=== PATIENT | female | born 1950 | race Caucasian/White ===

== ENCOUNTER → 2017-05-19 | Outpatient (CLI) | payer MEDICARE, BC ==
[~2017-05-19] MED LIST: ACYC800T99 PO; ASP325 PO; ASPIRIN; AUG875 PO; BUP100 PO; BUPR-474 PO; CEPH-13 PO; CITRICAL; EFFEXOR; ESCI20TA38 PO; FISH OIL; FOLIC ACID; GABA-549 PO; HYOS0.1225 PO; KET10 PO; LEVO75TA68 PO; LEVO75TA73 PO; MULTIPLE VITAMIN; ONDA4TAB PO; OXYGEN; PER PO; QUET200T29 PO; ROBC PO; ROS10 PO; SERAQUIL; THYROID; TRAM-420 PO; VERTIGO MED; [UNRECOGNIZED DRUG - CODE] PO; crestor; sinus med
== END ==
LOC: LAB 15:39
PROVIDERS: ATTEND Nurse Practitioner Primary Care
DX: M79.89 Other specified soft tissue disorders (principal)
CPT/HCPCS: 36415; 85379

== ENCOUNTER → 2017-05-19 | Outpatient (CLI) | payer MEDICARE, BC ==
--- NOTE | 2017-05-19 17:35 | RADIOLOGY IMAGING REPORT ---
[place] [facility] [place] NAME: Laura Sharpe : 1950 MR: [id number] V: [id number] EXAM DATE: ORDERING PHYSICIAN: NILDA BOSWELL TECHNOLOGIST: Location: [facility] - [place] Patient: Laura Sharpe : 1950 Visit/Account:[id number] Date of Sevice: 05/19/2017 Exam type: VENOUS DOPP UPPER RIGHT EXTREM History: Right arm pain into shoulder and neck x1 day, swollen hand Comparison: None. Findings: The right upper extremity veins were imaged including the right internal jugular vein the right subcl bess vein and right axillary vein, the right basilic vein, the right brachial vein, the right ulnar vein and right radial vein. The veins were compressible and demonstrated phasic flow. The right cep halic vein was not identified IMPRESSION: 1. No sonographic evidence of DVT involving the right upper extremity veins. 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 Report Dictated By: Ivania Pope MD at 05/19/2017 5:29 PM Report E-Signed By: Ivania Pope MD at 05/19/2017 5:32 PM WSN:[email or web address]
== END ==
LOC: RAD 16:30
PROVIDERS: ATTEND Nurse Practitioner Primary Care
DX: M79.89 Other specified soft tissue disorders (principal)

== ENCOUNTER → 2017-05-20 | Outpatient (CLI) | payer MEDICARE, BC ==
--- NOTE | 2017-05-20 14:20 | RADIOLOGY IMAGING REPORT ---
FACILITY: [facility] - [place] PATIENT NAME: Laura Sharpe : 1950 MR: [id number] V: [id number] EXAM DATE: ORDERING PHYSICIAN: NILDA BOSWELL TECHNOLOGIST: Location: [facility] Patient: Laura Sharpe : 1950 Visit/Account:[id number] Date of Sevice: 05/20/2017 Exam type: SHOULDER MIN 2 VIEWS RIGHT History: Pain in right shoulder neck with no injury Comparison: None. Findings: Three views of the right shoulder reveal mild narrowing the right glenohumeral joint. There is no ev idence of acute fracture or dislocation seen. Mild degenerative changes of the right AC joint are al so incidentally noted. IMPRESSION: 1. Mild narrowing the right glenohumeral joint and mild degenerative changes of the right AC joint. If patient's symptoms persist MR may be helpful Report Dictated By: Ivania Pope MD at 05/20/2017 2:14 PM Report E-Signed By: Ivania Pope MD at 05/20/2017 2:15 PM WSN:[email or web address]
== END ==
LOC: RAD 11:31
PROVIDERS: ATTEND Nurse Practitioner Primary Care
DX: M19.011 Primary osteoarthritis, right shoulder (principal)

== ENCOUNTER → 2017-06-25 | Outpatient (CLI) | payer MEDICARE, BC ==
[~2017-06-25] MED LIST changes: +ROSU20TA13 PO
--- NOTE | 2017-06-25 14:11 | RADIOLOGY IMAGING REPORT ---
FACILITY: [facility] PATIENT NAME: Laura Sharpe : 1950 MR: [id number] V: [id number] EXAM DATE: ORDERING PHYSICIAN: HARESH URIAS TECHNOLOGIST: Location: [facility] Patient: Laura Sharpe : 1950 Visit/Account:[id number] Date of Sevice: 06/25/2017 Clinical history: Screening, postmenopausal. Comparison: None. LUMBAR SPINE: The bone mineral density (BMD) measured from L1-L4 correlates with a Z-score of -1.1 and a T-score of -2.7 which is osteoporosis as defined by the World Health Organization. The corresponding risk of f racture in the lumbar spine is increased 6-8 times compared with a young adult reference population. HIP: Bone mineral density (BMD) measured in the left total hip region correlates with a Z-score of -0.8 an d a T-score of -2.2 which is osteopenia as defined by the World Health Organization. The correspondi ng risk of fracture in the hip is increased 4-6 times compared with a young adult reference populatio n. Bone mineral density (BMD) measured in the left femoral neck correlates with a Z-score of -0.9 and a T-score of -2.5 which is osteopenia as defined by the World Health Organization. The corresponding r isk of fracture in the hip is increased 6 times compared with a young adult reference population. Bone mineral density (BMD) measured in the left Femoral Neck region measures 0.688 g/cm2. Impression: 1. Lumbar spine: Osteoporosis. 2. Left femoral neck: Osteopenia. 3. Left femoral neck Bone Mineral Density is 0.688 g/cm2 The next DEXA scan of this patient should include the following sites: Lumbar spine and left hip. FRAX? WHO Fracture Risk Assessment Tool link: http://www.shef.ac.uk/FRAX/tool.jsp?locationValue=9 PLEASE NOTE: 1) The World Health Organization defines low BMD as follows: T-score Normal > -1 Osteopenia < -1 and > -2.5 Osteoporosis < -2.5 without fractures Established osteoporosis < -2.5 with fractures 2) In general, you may wish to consider: Diagnosis Treatment Follow-up DEXA Normal BMD Prevention 2-3 years Osteopenia Prevention/therapy 1-2 years Osteoporosis Therapy Yearly 3) Fracture risk estimated from the T-score is more accurate for vertebral fractures (often spontane ous) than for hip fractures. Report Dictated By: Linda aGrcia MD at 06/25/2017 2:02 PM Report E-Signed By: Linda Garcia MD at 06/25/2017 2:06 PM ABDULLAHIN:LIU
== END ==
LOC: RAD 13:27
PROVIDERS: ATTEND Internal Medicine
DX: M81.0 Age-related osteoporosis without current pathological fracture (principal); M85.88 Other specified disorders of bone density and structure, other site
CPT/HCPCS: 77080

== ENCOUNTER → 2017-07-01 | Outpatient (CLI) | payer MEDICARE, BC | LOC: LAB 10:20 | PROVIDERS: ATTEND Emergency Medicine | DX: E78.5 Hyperlipidemia, unspecified (principal); E03.9 Hypothyroidism, unspecified; R41.3 Other amnesia | CPT/HCPCS: 36415; 82465; 82607; 83718; 84443; 84478 ==

== ENCOUNTER → 2017-07-06 | Outpatient (CLI) | payer MEDICARE, BC ==
[~2017-07-06] MED LIST changes: +CHOL100058 PO; +DIPH0.5D12 IM; +LEVO50TA86 PO
== END ==
LOC: LAB 13:39
PROVIDERS: ATTEND Emergency Medicine
DX: M85.80 Other specified disorders of bone density and structure, unspecified site (principal)
CPT/HCPCS: 36415; 82306

== ENCOUNTER → 2017-08-27 | Outpatient (CLI) | payer MEDICARE, BC | LOC: LAB 10:01 | PROVIDERS: ATTEND Emergency Medicine | DX: E03.9 Hypothyroidism, unspecified (principal); E78.5 Hyperlipidemia, unspecified | CPT/HCPCS: 36415; 82465; 83718; 84443; 84478 ==

== ENCOUNTER → 2018-02-26 | Outpatient (CLI) | payer MEDICARE, BC ==
[~2018-02-26] MED LIST changes: +PRAV20TA65 PO; -ROSU20TA13 PO; +ROSU20TA5 PO
== END ==
LOC: LAB 14:40
PROVIDERS: ATTEND Emergency Medicine
DX: E78.5 Hyperlipidemia, unspecified (principal); M85.80 Other specified disorders of bone density and structure, unspecified site; E03.9 Hypothyroidism, unspecified
CPT/HCPCS: 36415; 82306; 82310; 82374; 82435; 82565; 82947; 84132; 84295; 84443; 84520

== ENCOUNTER → 2018-07-26 | Outpatient (CLI) | payer MEDICARE, BC ==
[~2018-07-26] MED LIST changes: +ALEN70TA43 PO; +EZET10TA41 PO; +ROSU10TA PO
[2018-07-26 16:33] LABS: PLATELET COUNT, AUTOMATED 237 K/uL (150-450)
== END ==
LOC: LAB 16:02
PROVIDERS: ATTEND Emergency Medicine
DX: E03.9 Hypothyroidism, unspecified (principal)
CPT/HCPCS: 36415; 82040; 82247; 82310; 82374; 82435; 82565; 82947; 84075; 84132; 84155; 84295; 84443; 84450; 84460; 84520; 85025

== ENCOUNTER → 2018-08-05 | Outpatient (CLI) | payer MEDICARE, BC | LOC: LAB 10:51 | PROVIDERS: ATTEND Emergency Medicine | DX: E87.5 Hyperkalemia (principal) | CPT/HCPCS: 36415; 82310; 82374; 82435; 82565; 82947; 84132; 84295; 84520 ==

== ENCOUNTER → 2018-08-12 | Outpatient (CLI) | payer MEDICARE, BC ==
[~2018-08-12] MED LIST changes: +IOPAMIDOL 76% 150 ML INFUS BTL 150 ML ONE
--- NOTE | 2018-08-12 17:27 | RADIOLOGY IMAGING REPORT ---
[facility] PATIENT NAME: Laura Sharpe : 1950 MR: [id number] V: [id number] EXAM DATE: ORDERING PHYSICIAN: ABDI OTTO TECHNOLOGIST: Location: [facility] Patient: Laura Sharpe : 1950 Visit/Account:[id number] Date of Sevice: 08/12/2018 EXAMINATION: CT abdomen without IV contrast CT abdomen with IV contrast CT pelvis without IV contrast CT pelvis with IV contrast HISTORY: Abdominal pain. TECHNIQUE: Spiral scans were obtained through the abdomen and pelvis before and during injection of nonionic iodinated intravenous contrast. Sagittal and coronal reformatted images are also submitted . One of the following dose optimization techniques was utilized in the performance of this exam: Autom ated exposure control; adjustment of the mA and/or kV according to the patient's size; or use of an i terative reconstruction technique. Specific details can be referenced in the facility's radiology C T exam operational policy. CONTRAST: 75 mL of IV Isovue-370 COMPARISON: None available. FINDINGS: Lower chest: Negative. Liver / biliary: Negative. Pancreas: Fatty replacement but otherwise unremarkable. Spleen: Negative. Adrenal glands: Negative. Kidneys: Negative. Pelvic structures: Negative. Bowel: Negative. Peritoneum / retroperitoneum / mesenteries: Negative. Vessels: Moderate aortoiliac calcification without aneurysm. Lymph nodes: Negative. Musculoskeletal / Body wall: Bilateral hip osteoarthritis. Mild degenerative changes in the spine. IMPRESSION: No acute abnormality in the abdomen or pelvis. Report Dictated By: Donnie Strickland MD at 08/12/2018 5:15 PM Report E-Signed By: Donnie Strickland MD at 08/12/2018 5:22 PM WSN:[email or web address]
== END ==
LOC: CT 06:57
PROVIDERS: ATTEND Emergency Medicine
DX: M16.0 Bilateral primary osteoarthritis of hip (principal); M47.899 Other spondylosis, site unspecified
CPT/HCPCS: 74178; Q9967

== ENCOUNTER → 2018-10-08 | Outpatient (CLI) | payer MEDICARE, BC ==
[~2018-10-08] MED LIST changes: -DIPH0.5D12 IM; +DIPH0.5S2 IM; -IOPAMIDOL 76% 150 ML INFUS BTL 150 ML ONE
--- NOTE | 2018-10-08 15:20 | RADIOLOGY IMAGING REPORT ---
FACILITY: [facility] - [place] PATIENT NAME: Laura Sharpe : 1950 MR: [id number] V: [id number] EXAM DATE: ORDERING PHYSICIAN: ABDI OTTO TECHNOLOGIST: Location: [facility] [place] Patient: Laura Sharpe : 1950 Visit/Account:[id number] Date of Sevice: 10/08/2018 CAROTID HISTORY: Aotoiliac atherosclerosis. COMPARISON: None. TECHNIQUE: Ultrasound images were obtained of the carotid and vertebral arteries bilaterally. Graysc joanie and color flow and doppler images were obtained. Stenosis percent is determined from velocity cri teria extrapolated from diameter data as defined by the Society of Radiologists in Ultrasound Consens us Conference Radiology 2003; 229;340-346. FINDINGS: RIGHT: There is antegrade flow within the right vertebral artery. There is no significant plaque of t he right carotid artery. Peak systolic velocity CCA: 89 cm/s Peak systolic velocity ECA: 122 cm/s Peak systolic velocity carotid bulb: 80 cm/s Peak systolic velocity proximal ICA: 53 cm/s Peak systolic velocity mid ICA: 97 cm/s Peak systolic velocity distal ICA: 137 cm/s ICA/CCA ratio is 1.5. LEFT: There is antegrade flow within the left vertebral artery. There is no significant plaque of the left carotid artery. Peak systolic velocity CCA: 107 cm/s Peak systolic velocity ECA: 85 cm/s Peak systolic velocity carotid bulb: 78 cm/s Peak systolic velocity proximal ICA: 101 cm/s Peak systolic velocity mid ICA: 108 cm/s Peak systolic velocity distal ICA: 114 cm/s ICA/CCA ratio is 1.4. Evaluation of the grayscale images on both sides shows no significant stenosis based on the grayscale images. There does not appear to be significant narrowing in the visualized aspects of the distal r ight ICA where the velocity measurement is mildly elevated although this vessel is difficult to evalu ate due to its depth. IMPRESSION: 1. Findings suggesting 50-69% stenosis in the distal right internal carotid artery based on velocity measurements however, on the grayscale images, there is no significant plaque identified. If clinic ally indicated CT angiogram of the carotid arteries may be considered to evaluate this discrepancy. There is no evidence of significant stenosis in the left carotid system. 2. Antegrade flow in both vertebral arteries. Report Dictated By: Linda Garcia MD at 10/08/2018 3:10 PM Report E-Signed By: Linda Garcia MD at 10/08/2018 3:16 PM WSN:[email or web address]
== END ==
LOC: US 02:18
PROVIDERS: ATTEND Emergency Medicine
DX: I70.0 Atherosclerosis of aorta (principal)
CPT/HCPCS: 93880

== ENCOUNTER 2018-11-26 16:22 | Emergency (ER) | payer MEDICARE, BC ==
--- NOTE | 2018-11-26 16:33 | ER Report ---
History and Physical Time Seen By MD: 16:29 HPI/ROS CHIEF COMPLAINT: Possible DVT HISTORY OF PRESENT ILLNESS: This is a 68-year-old female presents to emergency department for possible DVT. Patient states that she had a DVT in the 90s in her left medial calf, she's had a "lump there since", however it seems to be growing in size and is more uncomfortable over the last couple of days. There is also some surrounding redness to the area is warm to touch. She is concerned that she has another DVT. She denies fevers or chills. No nausea or vomiting. No chest pain or shortness breath. No other complaints. REVIEW OF SYSTEMS: Constitutional: No fever, no chills. Eyes: No discharge. ENT: No sore throat. Cardiovascular: As above. Respiratory: No cough, no shortness of breath. Gastrointestinal: No abdominal pain, no vomiting. Genitourinary: No hematuria. Musculoskeletal: As above. Skin: As above. Neurological: No headache. Allergies: Uncoded Allergies: CONTROL PILL (Allergy, Unknown, 03/13/17) PER DR URIAS CHART NOT STATED SPECIFIC TYPE EHR CONVERSION Home Meds Active Scripts Cephalexin 500 Mg Tab (KEFLEX 500 MG TAB) 500 Mg Tablet, 500 MG PO Q6H, #28 TAB Prov:LANDY GAGNON PRODUCT SAFETY TECHNICAL ASSISTANT-BC 11/26/18 Alendronate Sodium (FOSAMAX) 70 Mg Tablet, 70 MG PO QWK, #12 TAB 3 Refills Prov:ABDI OTTO MD 03/16/18 Reported Medications Levothyroxine Sodium (LEVOTHYROXINE SODIUM) 50 Mcg Tablet, 50 MCG PO QODAY, TAB 11/26/18 Levothyroxine Sodium (LEVOTHYROXINE SODIUM) 75 Mcg Tablet, 75 MCG PO QODAY, TAB 11/26/18 Cholecalciferol (Vitamin D3) (VITAMIN D) 1,000 Unit Capsule, 1000 UNIT PO DAILY, CAPSULE 07/06/17 Bupropion Hcl (WELLBUTRIN XL) 300 Mg Tab.er.24h, 300 MG PO QDAY, TAB 04/29/17 Aspirin (Aspirin) 325 Mg Tab, 325 MG PO QDAY, 0 Refills 12/22/10 Quetiapine Fumarate (Seroquel) 200 Mg Tablet, 200 MG PO QDAY, 0 Refills 12/22/10 [Folic Acid] No Conflict Check 12/22/10 [Multiple Vitamin] No Conflict Check 12/22/10 [Fish Oil] No Conflict Check 12/22/10 Discontinued Reported Medications [Citrical] No Conflict Check 12/22/10 Discontinued Scripts Levothyroxine Sodium (LEVOTHYROXINE SODIUM) 50 Mcg Tablet, 50 MCG PO QDAY, #90 TAB 3 Refills Prov:FAMABDI Shin MD 08/28/17 Past Medical/Surgical History The patient has a past medical and surgical history of headaches, DVT, menopau se, arthritis, sciatica, wears glasses, hypothyroidism, depression, previous suicide attempt, hernia repair, appendectomy, wisdom teeth extraction. Reviewed Nurses Notes: Yes Hx Smoking: Yes (05/21 ppd) Smoking Status: Current: Every Day Smoker Exposure to Second Hand Smoke?: No Hx Substance Use Disorder: No Hx Alcohol Use: No Constitutional Vital Sign - Last 24 Hours 11/26/18 11/26/18 11/26/18 11/26/18 16:22 16:26 16:30 16:30 Temp 98.8 Pulse ??? 75 Resp 12 B/P (MAP) 128/65 (86) 128/65 124/67 (86) Pulse Ox 88 O2 Delivery Room Air 11/26/18 11/26/18 11/26/18 11/26/18 16:52 17:00 17:22 17:30 Pulse 81 75 B/P (MAP) 102/48 (66) 117/67 (84) Pulse Ox 95 92 Physical Exam General Appearance: The patient is alert, has no immediate need for airway protection and no signs of toxicity. Eyes: Pupils equal and round no pallor or injection. ENT, Mouth: Mucous membranes are moist. Respiratory: There are no retractions, lungs are clear to auscultation. Cardiovascular: Regular rate and rhythm. No murmurs, clicks or rubs. Gastrointestinal: Abdomen is soft and non tender, no masses, bowel sounds normal. Neurological: Alert and oriented 4. Moving all extruded. Following all commands. No focal neuro deficits. Skin: There is a small bump noted to the left medial calf, there is some surrounding erythema and mild cellulitis, it is warm to touch when compared to the right leg. Musculoskeletal: Neck is supple non tender. Extremities are nontender, nonswollen and have full range of motion. DIFFERENTIAL DIAGNOSIS: After history and physical exam differential diagnosis was considered for DVT, cellulitis, abrasion, puncture wound, bite, phlebitis. Medical Decision Making EKG/Imaging Imaging PATIENT NAME: Laura Sharpe : 1950 MR: [id number] V: [id number] EXAM DATE: [id number] ORDERING PHYSICIAN: LANDY GAGNON TECHNOLOGIST: [place] [facility] [place] : 1950 Visit/Account:[id number] Date of Sevice: 11/26/2018 EXAMINATION: US VENOUS LOWER EXT LT COMPARISON: None Available HISTORY: Left leg pain and redness. FINDINGS: Standard left lower extremity Doppler ultrasound with color flow and spectral analysis is performed. The common femoral, femoral, and popliteal veins are patent. The visualized calf deep veins are unremarkable. There is superficial thrombus along the left calf within the lesser saphenous vein. No popliteal fluid collection. The right common femoral vein is patent. IMPRESSION: 1. No left lower extremity deep venous thrombus. 2. Lesser saphenous vein superficial thrombophlebitis. Report Dictated By: Tavon Kaur MD at 11/26/2018 5:27 PM Report E-Signed By: Tavon Kaur MD at 11/26/2018 5:31 PM WSN:[id number] ED Course/Re-evaluation ED Course The patient was admitted to room. A history and physical were obtained. D ifferential diagnoses were considered. An ultrasound of the left leg was negative for DVT, noted to have a superficial saphenous thrombophlebitis otherwise unremarkable. I reviewed the results with the patient. No indication for anticoagulation at this time. I did start the patient on antibiotics as I do believe she has an underlying infection. The patient had no other questions or concerns and was discharged home. Decision to Disposition Date: Nov 26, 2018 Decision to Disposition Time: 17:40 Depart Departure Latest Vital Signs Vital Signs Date Time Temp Pulse Resp B/P (MAP) Pulse Ox O2 Delivery O2 Flow Rate FiO2 11/26/18 17:30 117/67 (84) 11/26/18 17:22 75 92 11/26/18 16:30 98.8 12 Room Air Impression: Primary Impression: Cellulitis Additional Impression: Superficial thrombophlebitis Condition: Improved Disposition: HOME OR SELF-CARE Referrals: ABDI OTTO MD (PCP) 1 Week New Scripts Cephalexin 500 Mg Tab (KEFLEX 500 MG TAB) 500 Mg Tablet 500 MG PO Q6H, #28 TAB Prov: LANDY GAGNON [facility]- 11/26/18 Patient Instructions: Cellulitis (ED) Additional Instructions: There was no DVT. You have the start of a skin infection. Take the antibiotics as prescribed. Follow-up with your primary care provider next week. Drink plenty of water. Return to the emergency department for any other concerns or worsening symptoms. No indication for anticoagulation with the thrombophlebitis. Problem Qualifiers Primary Impression: Cellulitis Site of cellulitis: extremity Site of cellulitis of extremity: lower extremity Laterality: left Qualified Codes: L03.116 - Cellulitis of left lower limb Additional Impression: Superficial thrombophlebitis Superficial thrombophlebitis-Involved body area: lower extremity Laterality: left Qualified Codes: I80.02 - Phlebitis and thrombophlebitis of superficial vessels of left lower extremity LANDY GAGNON [facility]- Nov 26, 2018 16:33
[2018-11-26] MEDS ORDERED: LEVO50TA86 PO (16:38)
[2018-11-26] MEDS ORDERED: LEVO75TA73 PO (16:38)
[2018-11-26 17:30] VITALS: BP 117/67
--- NOTE | 2018-11-26 17:37 | RADIOLOGY IMAGING REPORT ---
FACILITY: [facility] - [place] PATIENT NAME: Laura Sharpe : 1950 MR: [id number] V: [id number] EXAM DATE: ORDERING PHYSICIAN: LANDY GAGNON TECHNOLOGIST: Location: [facility] Patient: Laura Sharpe : 1950 Visit/Account:[id number] Date of Sevice: 11/26/2018 EXAMINATION: US VENOUS LOWER EXT LT COMPARISON: None Available HISTORY: Left leg pain and redness. FINDINGS: Standard left lower extremity Doppler ultrasound with color flow and spectral analysis is p erformed. The common femoral, femoral, and popliteal veins are patent. The visualized calf deep veins are unrem arkable. There is superficial thrombus along the left calf within the lesser saphenous vein. No popliteal fluid collection. The right common femoral vein is patent. IMPRESSION: 1. No left lower extremity deep venous thrombus. 2. Lesser saphenous vein superficial thrombophlebitis. Report Dictated By: Tavon Kaur MD at 11/26/2018 5:27 PM Report E-Signed By: Tavon Kaur MD at 11/26/2018 5:31 PM WSN:[id number]
[2018-11-26] MEDS ORDERED: CEPH500T7 PO (17:44)
== END 2018-11-26 18:09 | disposition home or self-care (01) ==
LOC: ER 16:52
DX: L03.116 Cellulitis of left lower limb (principal); I80.02 Phlebitis and thrombophlebitis of superficial vessels of left lower extremity
CPT/HCPCS: 99284

== ENCOUNTER → 2018-12-02 | Outpatient (CLI) | payer MEDICARE, BC ==
[~2018-12-02] MED LIST changes: +CEPH500T7 PO
== END ==
LOC: LAB 14:47
PROVIDERS: ATTEND Emergency Medicine
DX: E78.5 Hyperlipidemia, unspecified (principal)
CPT/HCPCS: 36415; 82465; 83718; 84478